=== PATIENT | male | born 1985 | race Caucasian/White ===

== ENCOUNTER 2017-03-27 15:00 | Emergency (ER) | payer MEDICAID, OTHER ==
[~2017-03-27] VITALS: Ht 180.3 cm; Wt 72.6 kg
[2017-03-27] MEDS ORDERED: HYDROcodone/acetaminophen 5mg/325mg tablet PO ONE (15:40)
[2017-03-27 16:09] VITALS: BP 117/63
[2017-03-28] MEDS ORDERED: HYDR-3965 PO (15:23)
== END 2017-03-27 16:25 | disposition home or self-care (01) ==
LOC: ER 15:01
DX: S82.832A Other fracture of upper and lower end of left fibula, initial encounter for closed fracture (principal); F17.200 Nicotine dependence, unspecified, uncomplicated; X50.1XXA Overexertion from prolonged static or awkward postures, initial encounter; Y93.72 Activity, wrestling; Y92.89 Other specified places as the place of occurrence of the external cause; Y99.8 Other external cause status
CPT/HCPCS: 29515; 73590; 73610; 99284; A6449

== ENCOUNTER 2017-03-28 15:10 | Emergency (ER) | payer MEDICAID, OTHER ==
[~2017-03-28] VITALS: Ht 5954.8 cm; Wt 72.6 kg
[2017-03-28] MEDS ORDERED: HYDR-3965 PO (15:23)
[2017-03-28 15:33] VITALS: BP 131/79
== END 2017-03-28 15:35 | disposition home or self-care (01) ==
LOC: ER 15:10
DX: Z47.89 Encounter for other orthopedic aftercare (principal); S82.832D Other fracture of upper and lower end of left fibula, subsequent encounter for closed fracture with routine healing; X50.1XXD Overexertion from prolonged static or awkward postures, subsequent encounter
CPT/HCPCS: 99284

== ENCOUNTER 2017-04-02 13:51 | Outpatient (CLI) | payer MEDICAID, OTHER ==
[~2017-04-02] VITALS: Ht 180.3 cm; Wt 71.2 kg
[~2017-04-02 13:51] MED LIST: HYDR-3965 PO
[2017-04-02 14:03] VITALS: BP 122/79
== END 2017-04-02 14:50 | disposition home or self-care (01) ==
LOC: ORTHO 13:51
PROVIDERS: ATTEND Nurse Practitioner Family
DX: S82.832A Other fracture of upper and lower end of left fibula, initial encounter for closed fracture (principal); G89.29 Other chronic pain; F17.210 Nicotine dependence, cigarettes, uncomplicated; F12.90 Cannabis use, unspecified, uncomplicated; Z79.899 Other long term (current) drug therapy; X58.XXXA Exposure to other specified factors, initial encounter; Y93.89 Activity, other specified; Y92.89 Other specified places as the place of occurrence of the external cause; Y99.8 Other external cause status
CPT/HCPCS: 29515

== ENCOUNTER 2017-04-13 05:14 | Day surgery (SDC) | payer MEDICAID, OTHER ==
[2017-04-12 12:24] LABS: BASOPHILS % (AUTO) 0.5 % (0-1); EOSINOPHILS # (AUTO) 0.4 X10'3 (0-0.9); LYMPHOCYTES # (AUTO) 1.8 X10'3 (1.1-4.8); LYMPHOCYTES % (AUTO) 22.3 % (21-51); MEAN CORPUSCULAR HEMOGLOBIN 32.3 PG (27.0-31.0); MEAN CORPUSCULAR VOLUME 92.4 FL (78-98); MEAN PLATELET VOLUME 7.6 FL (7.4-10.4); MONOCYTES # (AUTO) 1.1 X10'3 (0-0.9); NEUTROPHILS # (AUTO) 4.6 X10'3 (1.8-7.7); NEUTROPHILS % (AUTO) 58.2 % (42-75); PRE OP HEMATOCRIT 44.6 % (42.0-52.0); PRE OP HEMOGLOBIN 15.6 g/dL (14.0-17.9); PRE OP PLATELET COUNT 229 X10'3 (140-440); RED BLOOD COUNT 4.83 X10'6 (4.70-6.10); RED CELL DISTRIBUTION WIDTH 13.9 % (11.5-14.5)
[2017-04-12 12:46] LABS: ALBUMIN 3.7 G/DL (3.4-5.0); ALBUMIN/GLOBULIN RATIO 1.3 (1.1-1.5); ALKALINE PHOSPHATASE 77 IU/L (46-116); BLOOD UREA NITROGEN 13 MG/DL (7-18); BUN/CREATININE RATIO 16.3 (5.4-32.0); CALCIUM 8.5 MG/DL (8.5-10.1); CHLORIDE 107 MMOL/L (99-107); PRE OP ALT 23 U/L (30-65); PRE OP ANION GAP 6 (8-16); PRE OP AST 11 U/L (10-37); PRE OP BILIRUB, TOTAL 0.4 MG/DL (0.0-1.0); PRE OP GLUCOSE 95 MG/DL (70-104); PRE OP POTASSIUM 4.3 MMOL/L (3.4-5.1); PRE OP SODIUM 144 MMOL/L (135-145); TOTAL CARBON DIOXIDE 31.2 MMOL/L (24-32); TOTAL PROTEIN 6.6 G/DL (6.4-8.2); eGFR > 90 ML/MIN
[2017-04-13] VITALS (10 sets, daily range): BP systolic 94–148; BP diastolic 42–100
[~2017-04-13] VITALS: Ht 180.3 cm; Wt 70.8 kg
[~2017-04-13 05:14] MED LIST changes: -HYDR-3965 PO; +IBUP-2284 PO; +TRAM50TA2 PO; +ringers solution, lacted 1,000 ML IV SCH
[2017-04-13] MEDS ORDERED: famotidine 20mg tablet PO ONE (05:30)
[2017-04-13] MEDS ORDERED: VANCOMYCIN INJ 1000 MG in NORMAL SALINE 250ml IV.SOLN IV ONE (05:30)
[2017-04-13] MEDS ORDERED: ceFAZolin 2gm in dextrose, iso 100 ML IV ONE (05:30)
[2017-04-13] MEDS ORDERED: LIDOcaine 1% (10mg/ml) 2ml vial ONE (05:44)
[2017-04-13] MEDS ORDERED: BUPIVAcaine/PF 2.5 mg/ml (0.25%) 30ml vial ONE (06:51)
[2017-04-13] MEDS ORDERED: ceFAZolin 1000mg inj ONE (06:54)
[2017-04-13] MEDS ORDERED: sevoflurane 250ml liquid IH ONE (07:28)
[2017-04-13] MEDS ORDERED: midazolam 2 mg/2 ml injection ONE (07:36)
[2017-04-13] MEDS ORDERED: fentaNYL/PF 50MCG/1 ML 2ML syringe ONE (07:36)
[2017-04-13] MEDS ORDERED: propofol inj 20 ML IV ONE (07:37)
[2017-04-13] MEDS ORDERED: rocuronium 10mg/ml inj IV ONE (07:55)
[2017-04-13] MEDS ORDERED: ringers solution, lacted 1,000 ML IV SCH (08:06)
[2017-04-13] MEDS ORDERED: ondansetron/PF 4mg/2ml inj IV PRN (08:10)
[2017-04-13] MEDS ORDERED: proCHLORperazine 10 MG/2 ml inj IV PRN (08:10)
[2017-04-13] MEDS ORDERED: morphine 2 MG/ML inj. syringe IV PRN (08:10)
[2017-04-13] MEDS ORDERED: meperidine/PF 25mg/ml syringe IV PRN ×3 (08:10)
[2017-04-13] MEDS ORDERED: ketorolac trometh. 30mg/ml inj. ONE (08:41)
[2017-04-13] MEDS: morphine 2 MG/ML inj. syringe IV PRN ×2 (09:05→09:14)
[2017-04-13] MEDS ORDERED: HYDROcodone/acetaminophen 10/325mg tab PO ONE (10:00)
== END 2017-04-13 10:20 | disposition home or self-care (01) ==
LOC: PAS 05:14
PROVIDERS: ATTEND Orthopaedic Surgery
DX: S82.832A Other fracture of upper and lower end of left fibula, initial encounter for closed fracture (principal); S82.62XA Displaced fracture of lateral malleolus of left fibula, initial encounter for closed fracture; X58.XXXA Exposure to other specified factors, initial encounter; Y93.89 Activity, other specified; Y92.89 Other specified places as the place of occurrence of the external cause; Y99.8 Other external cause status; F17.210 Nicotine dependence, cigarettes, uncomplicated; F12.90 Cannabis use, unspecified, uncomplicated; F14.90 Cocaine use, unspecified, uncomplicated
CPT/HCPCS: 27792; 36415; 80053; 85025; 93005; A6449; J0690; J1885; J2250; J2270; J2704; J3010; J3370; J3490; J7120; A7000

== ENCOUNTER 2017-04-20 11:08 | Outpatient (CLI) | payer MEDICAID, OTHER ==
[~2017-04-20 11:08] MED LIST changes: -ringers solution, lacted 1,000 ML IV SCH
== END 2017-04-20 11:50 | disposition home or self-care (01) ==
LOC: ORTHO 11:08
PROVIDERS: ATTEND Nurse Practitioner Family
DX: S82.832D Other fracture of upper and lower end of left fibula, subsequent encounter for closed fracture with routine healing (principal)
CPT/HCPCS: 99213

== ENCOUNTER 2017-04-27 10:07 | Outpatient (CLI) | payer MEDICAID, OTHER ==
[2017-04-27 10:07] VITALS: BP 128/87
== END 2017-04-27 10:57 | disposition home or self-care (01) ==
LOC: ORTHO 10:07
PROVIDERS: ATTEND Nurse Practitioner Family
DX: S82.832D Other fracture of upper and lower end of left fibula, subsequent encounter for closed fracture with routine healing (principal); M25.472 Effusion, left ankle; F17.210 Nicotine dependence, cigarettes, uncomplicated; Z88.8 Allergy status to other drugs, medicaments and biological substances; X58.XXXD Exposure to other specified factors, subsequent encounter
CPT/HCPCS: 73600

== ENCOUNTER 2017-06-02 11:35 | Outpatient (CLI) | payer MEDICAID, OTHER ==
[~2017-06-02 11:35] MED LIST changes: -IBUP-2284 PO; +IBUP100O20 PO
[2017-06-02 11:39] VITALS: BP 122/78
== END 2017-06-02 12:05 | disposition home or self-care (01) ==
LOC: ORTHO 11:35
PROVIDERS: ATTEND Nurse Practitioner Family
DX: S82.832D Other fracture of upper and lower end of left fibula, subsequent encounter for closed fracture with routine healing (principal); F17.210 Nicotine dependence, cigarettes, uncomplicated; Z88.8 Allergy status to other drugs, medicaments and biological substances; X58.XXXD Exposure to other specified factors, subsequent encounter
CPT/HCPCS: 99212

== ENCOUNTER 2017-06-09 09:34 | Outpatient (CLI) | payer MEDICAID, OTHER ==
[2017-06-09 09:39] VITALS: BP 111/77
== END 2017-06-09 10:10 | disposition home or self-care (01) ==
LOC: ORTHO 09:34
PROVIDERS: ATTEND Nurse Practitioner Family
DX: S82.832D Other fracture of upper and lower end of left fibula, subsequent encounter for closed fracture with routine healing (principal); F17.210 Nicotine dependence, cigarettes, uncomplicated; Z88.8 Allergy status to other drugs, medicaments and biological substances; X58.XXXD Exposure to other specified factors, subsequent encounter
CPT/HCPCS: 29540; 99213

== ENCOUNTER 2017-06-30 13:04 | Outpatient (CLI) | payer MEDICAID, OTHER ==
[2017-06-30 13:04] VITALS: BP 124/83
== END 2017-06-30 13:35 | disposition home or self-care (01) ==
LOC: ORTHO 13:04
PROVIDERS: ATTEND Nurse Practitioner Family
DX: S82.832D Other fracture of upper and lower end of left fibula, subsequent encounter for closed fracture with routine healing (principal); Z88.8 Allergy status to other drugs, medicaments and biological substances; X58.XXXD Exposure to other specified factors, subsequent encounter
CPT/HCPCS: 73600; 99213

== ENCOUNTER 2017-09-01 21:50 | Emergency (ER) | payer MEDICAID ==
[~2017-09-01] VITALS: Ht 180.3 cm; Wt 53.8 kg
[~2017-09-01 21:50] MED LIST changes: +CEPH-572 PO; +SULF1TAB49 PO
[2017-09-01] MEDS ORDERED: epiNEPHrine 1 mg/ml inj SQ STA (22:02)
[2017-09-01] MEDS ORDERED: tranexamic acid 100mg/ml inj. IV ONE (22:05)
[2017-09-01] MEDS ORDERED: normal saline 1000ML IV soln IV ONE (22:05)
[2017-09-01] MEDS ORDERED: famotidine/PF 10 mg/ml inj IV ONE (22:05)
[2017-09-01] MEDS ORDERED: diphenhydrAMINE 50 mg/ml inj IV ONE (22:05)
[2017-09-01] MEDS ORDERED: methylPREDNISolone sod succ 125mg/2ml vial IV ONE (22:10)
[2017-09-01] MEDS ORDERED: CLIN150C2 PO (22:41)
[2017-09-01 22:54] VITALS: BP 125/77
== END 2017-09-01 22:55 | disposition home or self-care (01) ==
LOC: ER 21:51
DX: T88.6XXA Anaphylactic reaction due to adverse effect of correct drug or medicament properly administered, initial encounter (principal); T37.0X5A Adverse effect of sulfonamides, initial encounter; G43.909 Migraine, unspecified, not intractable, without status migrainosus; G89.29 Other chronic pain; Y84.9 Medical procedure, unspecified as the cause of abnormal reaction of the patient, or of later complication, without mention of misadventure at the time of the procedure; Y92.89 Other specified places as the place of occurrence of the external cause
CPT/HCPCS: 96372; 96374; 96375; 99284; J0171; J1200; J2930; J3490; J7030

== ENCOUNTER 2017-09-09 11:41 | Outpatient (CLI) | payer MEDICAID ==
[~2017-09-09 11:41] MED LIST changes: +CLIN150C2 PO
[2017-09-09 12:22] VITALS: BP 128/83
== END 2017-09-09 12:13 | disposition home or self-care (01) ==
LOC: ORTHO 11:41
PROVIDERS: ATTEND Nurse Practitioner Family
DX: S82.892D Other fracture of left lower leg, subsequent encounter for closed fracture with routine healing (principal); X58.XXXD Exposure to other specified factors, subsequent encounter
CPT/HCPCS: 73610; 99213

== ENCOUNTER 2017-09-23 14:39 | Outpatient (CLI) | payer MEDICAID ==
[~2017-09-23 14:39] MED LIST changes: -CEPH-572 PO; -CLIN150C2 PO; -SULF1TAB49 PO
== END 2017-09-23 14:53 | disposition home or self-care (01) ==
LOC: ORTHO 14:39
PROVIDERS: ATTEND Nurse Practitioner Family
DX: S82.832D Other fracture of upper and lower end of left fibula, subsequent encounter for closed fracture with routine healing (principal); F12.90 Cannabis use, unspecified, uncomplicated; Z88.2 Allergy status to sulfonamides; Z88.8 Allergy status to other drugs, medicaments and biological substances; Z87.891 Personal history of nicotine dependence; X58.XXXD Exposure to other specified factors, subsequent encounter
CPT/HCPCS: 99212

== ENCOUNTER 2017-10-06 14:34 | Outpatient (CLI) | payer MEDICAID ==
[2017-10-06] MEDS ORDERED: mupirocin 2% ointment 22GM ONE (15:10)
== END 2017-10-06 15:15 | disposition home or self-care (01) ==
LOC: ORTHO 14:34
PROVIDERS: ATTEND Nurse Practitioner Family
DX: S82.832D Other fracture of upper and lower end of left fibula, subsequent encounter for closed fracture with routine healing (principal); F12.90 Cannabis use, unspecified, uncomplicated; Z88.2 Allergy status to sulfonamides; Z88.8 Allergy status to other drugs, medicaments and biological substances; Z87.891 Personal history of nicotine dependence; Z72.89 Other problems related to lifestyle; X58.XXXD Exposure to other specified factors, subsequent encounter
CPT/HCPCS: 73600; 99213

== ENCOUNTER 2017-10-15 15:38 | Outpatient (CLI) | payer MEDICAID ==
[2017-10-15 15:40] VITALS: BP 116/64
== END 2017-10-15 15:56 | disposition home or self-care (01) ==
LOC: ORTHO 15:38
PROVIDERS: ATTEND Nurse Practitioner Family
DX: S82.832D Other fracture of upper and lower end of left fibula, subsequent encounter for closed fracture with routine healing (principal); F12.90 Cannabis use, unspecified, uncomplicated; F14.90 Cocaine use, unspecified, uncomplicated; F17.200 Nicotine dependence, unspecified, uncomplicated; Z88.2 Allergy status to sulfonamides; Z88.8 Allergy status to other drugs, medicaments and biological substances; X58.XXXD Exposure to other specified factors, subsequent encounter
CPT/HCPCS: 99213

== ENCOUNTER 2017-11-02 10:30 | Outpatient (CLI) | payer MEDICAID ==
[2017-11-02 10:30] VITALS: BP 134/89
== END 2017-11-02 11:30 | disposition home or self-care (01) ==
LOC: ORTHO 10:30
PROVIDERS: ATTEND Nurse Practitioner Family
DX: S82.832D Other fracture of upper and lower end of left fibula, subsequent encounter for closed fracture with routine healing (principal); F12.90 Cannabis use, unspecified, uncomplicated; F14.90 Cocaine use, unspecified, uncomplicated; Z87.891 Personal history of nicotine dependence; Z88.2 Allergy status to sulfonamides; Z88.8 Allergy status to other drugs, medicaments and biological substances; X58.XXXD Exposure to other specified factors, subsequent encounter
CPT/HCPCS: 99212

== ENCOUNTER 2017-11-03 14:38 | Outpatient (CLI) | payer MEDICAID ==
[2017-11-03 14:42] VITALS: BP 139/98
== END 2017-11-03 15:13 | disposition home or self-care (01) ==
LOC: ORTHO 14:38
PROVIDERS: ATTEND Nurse Practitioner Family
DX: S82.832D Other fracture of upper and lower end of left fibula, subsequent encounter for closed fracture with routine healing (principal); F12.90 Cannabis use, unspecified, uncomplicated; F14.90 Cocaine use, unspecified, uncomplicated; Z87.891 Personal history of nicotine dependence; Z88.2 Allergy status to sulfonamides; Z88.1 Allergy status to other antibiotic agents; X58.XXXD Exposure to other specified factors, subsequent encounter
CPT/HCPCS: 99212; A6449

== ENCOUNTER 2017-11-12 10:12 | Outpatient (CLI) | payer MEDICAID ==
[2017-11-12 10:08] VITALS: BP 166/101
== END 2017-11-12 10:45 | disposition home or self-care (01) ==
LOC: ORTHO 10:12
PROVIDERS: ATTEND Nurse Practitioner Family
DX: S82.832D Other fracture of upper and lower end of left fibula, subsequent encounter for closed fracture with routine healing (principal)
CPT/HCPCS: 99212; A6449

== ENCOUNTER 2017-11-24 12:36 | Day surgery (SDC) | payer MEDICAID ==
[2017-11-22 11:25] LABS: BASOPHILS # (AUTO) 0.1 X10'3 (0-0.2); EOSINOPHILS # (AUTO) 0.3 X10'3 (0-0.9); EOSINOPHILS % (AUTO) 3.8 % (0-6); LYMPHOCYTES # (AUTO) 1.5 X10'3 (1.1-4.8); LYMPHOCYTES % (AUTO) 18.1 % (21-51); MEAN CORPUSCULAR HEMOGLOBIN 31.8 PG (27.0-31.0); MEAN CORPUSCULAR HGB CONC 34.5 % (33.0-36.5); MEAN CORPUSCULAR VOLUME 92.1 FL (78-98); MEAN PLATELET VOLUME 7.4 FL (7.4-10.4); MONOCYTES % (AUTO) 12.2 % (2-12); NEUTROPHILS # (AUTO) 5.5 X10'3 (1.8-7.7); NEUTROPHILS % (AUTO) 64.9 % (42-75); PRE OP HEMATOCRIT 46.8 % (42.0-52.0); PRE OP HEMOGLOBIN 16.2 g/dL (14.0-17.9); PRE OP PLATELET COUNT 239 X10'3 (140-440); RED BLOOD COUNT 5.08 X10'6 (4.70-6.10)
[2017-11-22 11:40] LABS: ALBUMIN 3.5 G/DL (3.4-5.0); ALBUMIN/GLOBULIN RATIO 1.1 (1.1-1.5); ALKALINE PHOSPHATASE 82 IU/L (46-116); BLOOD UREA NITROGEN 10 MG/DL (7-18); BUN/CREATININE RATIO 12.2 (5.4-32.0); CALCIUM 8.9 MG/DL (8.5-10.1); CHLORIDE 104 MMOL/L (99-107); CREATININE 0.82 MG/DL (0.60-1.10); PRE OP ALT 14 U/L (30-65); PRE OP ANION GAP 5 (8-16); PRE OP AST 12 U/L (10-37); PRE OP BILIRUB, TOTAL 0.3 MG/DL (0.0-1.0); PRE OP GLUCOSE 83 MG/DL (70-104); PRE OP POTASSIUM 4.1 MMOL/L (3.4-5.1); PRE OP SODIUM 138 MMOL/L (135-145); TOTAL PROTEIN 6.8 G/DL (6.4-8.2); eGFR > 90 ML/MIN
[~2017-11-24] VITALS: Ht 180.3 cm; Wt 65.3 kg
[2017-11-24] VITALS (17 sets, daily range): BP systolic 103–131; BP diastolic 64–99
[~2017-11-24 12:36] MED LIST changes: +CLIN150C8 PO; +Cefazolin 2GM/50ML dext iso,osmotic IVPB IV ONE; -IBUP100O20 PO; -TRAM50TA2 PO; +VANCOMYCIN INJ 1000 MG in NORMAL SALINE 250ml IV.SOLN IV ONE; +famotidine 20mg tablet PO ONE; +ringers solution, lacted 1,000 ML IV SCH
[2017-11-24] MEDS ORDERED: CLIN150C98 PO (13:25)
[2017-11-24] MEDS ORDERED: sevoflurane 250ml liquid IH ONE (13:47)
[2017-11-24] MEDS ORDERED: tobramycin sulfate 1.2gm vial TP ONE (13:51)
[2017-11-24] MEDS ORDERED: midazolam 2 mg/2 ml injection ONE (13:58)
[2017-11-24] MEDS ORDERED: fentaNYL /PF 50mcg/ml 5ml ampule ONE (13:58)
[2017-11-24] MEDS ORDERED: vancomycin 1,000mg inj ONE (14:03)
[2017-11-24] MEDS ORDERED: ketamine 50mg/5ml syringe ONE (14:17)
[2017-11-24] MEDS ORDERED: ROPIVAcaine 0.5% (5mg/ml) 30ml vial ONE (14:21)
[2017-11-24] MEDS ORDERED: ROPIVAcaine 0.5% (5mg/ml) 30ml vial IJ ONE (14:24)
[2017-11-24] MEDS ORDERED: LIDOcaine 2% (20mg/ml) 5ml vial ONE (14:34)
[2017-11-24] MEDS ORDERED: propofol inj 20 ML IV ONE (14:34)
[2017-11-24] MEDS ORDERED: ondansetron/PF 4mg/2ml inj ONE (14:46)
[2017-11-24] MEDS ORDERED: dexamethasone sod phosphate 4mg/ml inj. ONE (14:46)
[2017-11-24] MEDS ORDERED: meperidine/PF 25mg/ml syringe ONE (15:16)
[2017-11-24] MEDS ORDERED: ringers solution, lacted 1,000 ML IV SCH (15:19)
[2017-11-24] MEDS ORDERED: morphine 4 MG/ML inj SYRINge IV PRN ×2 (15:20)
[2017-11-24] MEDS ORDERED: ondansetron/PF 4mg/2ml inj IV PRN (15:20)
[2017-11-24] MEDS ORDERED: meperidine/PF 25mg/ml syringe IV PRN ×3 (15:20)
[2017-11-24] MEDS ORDERED: proCHLORperazine 10 MG/2 ml inj IV PRN (15:20)
== END 2017-11-24 18:10 | disposition home or self-care (01) ==
LOC: PAS 12:36
PROVIDERS: ATTEND Orthopaedic Surgery
DX: T84.59XA Infection and inflammatory reaction due to other internal joint prosthesis, initial encounter (principal); Y83.8 Other surgical procedures as the cause of abnormal reaction of the patient, or of later complication, without mention of misadventure at the time of the procedure; Y92.89 Other specified places as the place of occurrence of the external cause; G43.909 Migraine, unspecified, not intractable, without status migrainosus; G89.29 Other chronic pain; F17.210 Nicotine dependence, cigarettes, uncomplicated; F12.90 Cannabis use, unspecified, uncomplicated; R94.31 Abnormal electrocardiogram [ECG] [EKG]; F14.90 Cocaine use, unspecified, uncomplicated; Z79.2 Long term (current) use of antibiotics; Z88.1 Allergy status to other antibiotic agents; Z90.49 Acquired absence of other specified parts of digestive tract; Z72.89 Other problems related to lifestyle; Z88.2 Allergy status to sulfonamides; Z98.890 Other specified postprocedural states; Z88.8 Allergy status to other drugs, medicaments and biological substances; Z79.891 Long term (current) use of opiate analgesic
CPT/HCPCS: 11981; 20680; 36415; 80053; 85025; 87070; 87075; 87102; 93005; A6449; C1713; J0690; J1100; J2001; J2175; J2250; J2270; J2405; J2704; J2795; J3010; J3260; J3370; J7120; A7000

== ENCOUNTER 2017-12-03 10:40 | Outpatient (CLI) | payer MEDICAID ==
[2017-12-03 10:40] VITALS: BP 137/87
[~2017-12-03 10:40] MED LIST changes: -CLIN150C8 PO; +CLIN150C98 PO; -Cefazolin 2GM/50ML dext iso,osmotic IVPB IV ONE; -VANCOMYCIN INJ 1000 MG in NORMAL SALINE 250ml IV.SOLN IV ONE; -famotidine 20mg tablet PO ONE; -ringers solution, lacted 1,000 ML IV SCH
== END 2017-12-03 11:25 | disposition home or self-care (01) ==
LOC: ORTHO 10:40
PROVIDERS: ATTEND Nurse Practitioner Family
DX: S82.832D Other fracture of upper and lower end of left fibula, subsequent encounter for closed fracture with routine healing (principal); M79.89 Other specified soft tissue disorders; Z87.891 Personal history of nicotine dependence; Z88.2 Allergy status to sulfonamides; Z88.8 Allergy status to other drugs, medicaments and biological substances; Z72.89 Other problems related to lifestyle; X58.XXXD Exposure to other specified factors, subsequent encounter
CPT/HCPCS: 73610; 99214; A6449; L4360

== ENCOUNTER → 2017-12-23 | Outpatient (CLI) | payer MEDICAID ==
[2017-12-23 13:06] VITALS: BP 140/105
== END | disposition home or self-care (01) ==
LOC: ORTHO 13:09
PROVIDERS: ATTEND Nurse Practitioner Family
DX: S82.62XD Displaced fracture of lateral malleolus of left fibula, subsequent encounter for closed fracture with routine healing (principal); F12.90 Cannabis use, unspecified, uncomplicated; F17.200 Nicotine dependence, unspecified, uncomplicated; Z88.2 Allergy status to sulfonamides; Z88.8 Allergy status to other drugs, medicaments and biological substances; X58.XXXD Exposure to other specified factors, subsequent encounter
CPT/HCPCS: 73610; 99213